=== PATIENT | male | born 1950 | race Caucasian/White ===

== ENCOUNTER 2017-04-29 20:59 | Emergency (ER) | payer OTHER, MEDICARE ==
--- NOTE | 2017-04-29 21:20 | CPEKG ---
Heart Rate: 55 RR Interval: 1091 P-R Interval: 268 QRSD Interval: 116 QT Interval: 436 QTC Interval: 417 P Val[place]: -51 QRS Valmeyer: -19 T Wave Val[place]yer: 29 EKG Severity - ABNORMAL ECG - EKG Impression: SINUS OR ECTOPIC ATRIAL RHYTHM EKG Impression: FIRST DEGREE AV BLOCK EKG Impression: NONSPECIFIC INTRAVENTRICULAR CONDUCTION DELAY Electronically Signed By: Doe Orellana 29-Apr-2017 23:05:08
--- NOTE | 2017-04-29 21:34 | EDPHY ---
H & P Time Seen by Provider: 04/29/17 21:34 HPI/ROS: CHIEF COMPLAINT: Palpitations HISTORY OF PRESENT ILLNESS: The patient presents to the ED after an episode of resolved palpitations. The patient was diagnosed with atrial flutter approximately 2 weeks ago. He is status post cardioversion. The patient is currently taking losartan and diltiazem. He is not anticoagulated. Approximately 1 hour prior to arrival the patient developed symptoms of palpitations. He has a monitor on his cell phone which told him atrial fibrillation was possible. While driving to the emergency department, the patient's symptoms resolved. The patient states his symptoms are typically precipitated by insomnia. He has been having problems with this condition for some time. He recently has tried to transition to Lunesta from Ambien. He denies significant caffeine or alcohol use. The patient denies any history of exertional chest pain or shortness of breath. He has no additional risk factors for coronary artery disease. REVIEW OF SYSTEMS: A comprehensive 10 point review of systems is otherwise negative aside from elements mentioned in the history of present illness. Source: Patient Exam Limitations: No limitations - Family History Significant Family History: No pertinent family hx - Social History Smoking Status: Never smoked - Physical Exam Exam: General Appearance: Alert, no distress Eyes: Pupils equal and round no pallor or injection ENT, Mouth: Mucous membranes moist Respiratory: There are no retractions, lungs are clear to auscultation Cardiovascular: Regular rate and rhythm Gastrointestinal: Abdomen is soft and nontender, no masses, bowel sounds normal Neurological: A&O, normal motor function, normal sensory exam, normal cranial nerves Skin: Warm and dry, no rashes Musculoskeletal: Neck is supple nontender Extremities: symmetrical, full range of motion Constitutional: Initial Vital Signs Temperature (C) 36.6 C 04/29/17 21:37 Heart Rate 59 L 04/29/17 21:37 Respiratory Rate 16 04/29/17 21:37 Blood Pressure 142/88 H 04/29/17 21:37 O2 Sat (%) 94 04/29/17 21:37 O2 Delivery Mode Room Air Allergies/Adverse Reactions: Sulfa (Sulfonamide Antibiotics) Allergy (Verified 04/29/17 21:46) Home Medications: Medication Instructions Recorded Cardizem 04/29/17 Lisinopril 04/29/17 Lunesta 04/29/17 Zolpidem Tartrate [Ambien 10 mg] 10 mg PO HS PRN #10 tablet 04/29/17 Medical Decision Making - Diagnostics EKG Interpretation: EKG: Complete interpretation has been separately recorded in the [employer] archive. Summary impression: Sinus rhythm, first-degree AV block, no ischemic changes noted ED Course/Re-evaluation: The patient presents to the ED after an episode of resolved palpitations. The patient was placed on a property assessment monitor. He was observed in the emergency department without evidence of recurrent palpitations or appreciable arrhythmias. At this point time I do feel the patient can safely be discharged home. The patient has requested a short course of Ambien. I have given him a total of (10) 10 mg tablets. The patient does understand return to the emergency department for any recurrent palpitations, chest pain, shortness of breath or other concerns. Differential Diagnosis: Differential diagnosis considered includes atrial fibrillation, atrial flutter, PVCs, sinus tachycardia Departure - Departure Disposition: Home, Routine, Self-Care Clinical Impression: History of atrial flutter, Palpitations Condition: Good Instructions: Palpitations (ED) Additional Instructions: 1. Return to the emergency department for any recurrent palpitations, chest pain , shortness of breath or other concerns. Referrals: [facility] [Other] - As per Instructions Prescriptions: Zolpidem Tartrate [Ambien 10 mg] 10 mg PO HS PRN #10 tablet PRN Reason: insomnia
[2017-04-29 21:47] VITALS: RESP 16; TEMP 97.9
[2017-04-29] MEDS ORDERED: ZOLPIDEM TARTRATE 5 MG TAB PO ONE (22:35)
[2017-04-29 23:03] VITALS: BP 129/82; PULSE 56; O2SAT 93
== END 2017-04-29 22:59 | disposition home or self-care (01) ==
DX: R00.2 Palpitations (principal); Z86.79 Personal history of other diseases of the circulatory system